=== PATIENT | female | born 1970 | race Asian ===

== ENCOUNTER 2019-12-15 15:14 | Inpatient (IN) | payer MEDICAID, SELFPAY ==
[~2019-12-15] VITALS: Ht 157.5 cm; Wt 68.0 kg
[2019-12-15 15:22] VITALS: BP 130/79
--- NOTE | 2019-12-15 16:02 | NUR ---
C/O WEAKNESS, N/V, AND ELEVATED BLOOD GLUCOSE X2 DAYS. PT STATES SHE HAS A HX OF DM BUT SHE DOES NOT TAKE ANY MEDICATION. PT STATES SHE USED AN UNK AMOUNT OF AN UNK TYPE OF INSULIN GIVEN TO HER BY HER MOM LAST NIGHT BECAUSE HER BS WAS "OVER 400". PT FSBS AT THIS TIME IS 295. PT IS TACHYCARDIC AT 112 BPM AT THIS TIME. PT STATES SHE HAS ALSO HAD NAUSEA/VOMITING FOR THE LAST TWO DAYS. ABDOMEN SOFT/FLAT/NON TENDER. LBM 12/13/20. BOWEL SOUNDS PRESENT X4. PT PLACED ON BEDSIDE LATEX FOAM WORKER & IN GOWN.
[2019-12-15] MEDS ORDERED: NACL 0.9% 1,000 ML IV SCH (16:04)
--- NOTE | 2019-12-15 16:31 | NUR ---
PT UNABLE TO PROVIDE URINE SAMPLE AT THIS TIME.
[2019-12-15 16:43] LABS: BASOPHILS % (AUTO) 0.8 % (0.0-2.0); EOSINOPHILS % (AUTO) 0.1 % (0.0-4.0); HEMATOCRIT 41.6 % (36-48); HEMOGLOBIN 13.9 g/dL (12.0-16.0); LYMPHOCYTES % (AUTO) 31.7 % (20.5-51.1); MEAN CORPUSCULAR HEMOGLOBIN 29 pg (27-31); MEAN CORPUSCULAR HGB CONC 33 g/dL (33-37); MEAN CORPUSCULAR VOLUME 87.1 fL (80-94); MONOCYTES # (AUTO) 0.5 K/uL (0.8-1.0); MONOCYTES % (AUTO) 7.3 % (1.7-9.3); NEUTROPHILS # (AUTO) 3.8 K/uL (1.8-7.7); NEUTROPHILS % (AUTO) 60.1 % (42.2-75.2); PLATELET COUNT (AUTO) 322 K/uL (140-450); RED BLOOD CELL COUNT(AUTO) 4.78 MIL/uL (4.20-5.40); RED CELL DISTRIBUTION WIDTH 13.8 % (11.6-13.7); WHITE BLOOD COUNT (AUTO) 6.3 K/uL (4.8-10.8)
[2019-12-15] MEDS ORDERED: AZITHROMYCIN 500 MG in DEXTROSE 5% 250 ML IV ONE (16:45)
[2019-12-15 16:53] LABS: ANION GAP 15.1 (8-16); CARBON DIOXIDE 26.8 mmol/L (21-32); CHLORIDE 96 mmol/L (98-107); CREATININE 0.9 mg/dL (0.6-1.3); GFR ARICAN-AMERICAN 85 mL/min (>90); GLUCOSE 284 mg/dL (74-106); POTASSIUM 3.9 mmol/L (3.5-5.1); SODIUM SERUM 134 mmol/L (136-145); UREA NITROGEN, BLOOD 14 mg/dL (7-18)
[2019-12-15 16:55] LABS: PROTHROMBIN TIME 9.5 secs (10.8-13.4)
[2019-12-15 16:59] LABS: ACETONE, SERUM NEGATIVE (NEGATIVE); ALBUMIN 2.8 g/dL (3.4-5.0); ASPARTATE AMINOTRANSFERASE 30 U/L (15-37); TOTAL BILIRUBIN 0.4 mg/dL (0.0-1.0)
--- NOTE | 2019-12-15 17:00 | NUR ---
PT RESTING IN BED AT LOWEST POSITION, HOB ELEVATED, SIDE RAIL X 1
[2019-12-15] MEDS ORDERED: AZITHROMYCIN 500 MG INJ VIAL IV ONE (17:02)
[2019-12-15 17:04] LABS: FIBRINOGEN 475 mg/dL (200-400)
--- NOTE | 2019-12-15 17:25 | NUR ---
PT STATED SHE IS UNABLE TO PROVIDE URINE AT THIS TIME.
[2019-12-15 17:48] LABS: D-DIMER 388 ng/ml (0-400)
[2019-12-15] MEDS ORDERED: DEXTROSE 50% 50 ML SYR IVP PRN (18:15)
[2019-12-15] MEDS ORDERED: HYDROcodone/APAP 7.5/325 MG 1 TAB PO PRN (18:15)
[2019-12-15] MEDS ORDERED: ACETAMINOPHEN 325 MG TAB PO PRN (18:15)
[2019-12-15 18:16] LABS: C-REACTIVE PROTEIN QUANT 2.5 mg/dL (0.0-0.9)
[2019-12-15 18:35] LABS: MAGNESIUM 1.5 mg/dL (1.8-2.4)
--- NOTE | 2019-12-15 18:35 | NUR ---
PT STATES SHE IS STILL UNABLE TO URINATE
[2019-12-15 18:36] LABS: PHOSPHORUS 3.9 mg/dL (2.5-4.9)
[2019-12-15 18:40] LABS: THYROID STIMULATING HORMONE 5.1 uIU/mL (0.34-3.74)
[2019-12-15 18:41] LABS: RSV NEGATIVE (NEGATIVE)
--- NOTE | 2019-12-15 19:10 | NUR ---
REPORT GIVEN TO BERNY FROST FOR TRANSFER OF CARE.
--- NOTE | 2019-12-15 19:14 | NUR ---
RECIEVED REPORT FROM BERNY CORRIGAN. TRANSFER OF CARE AT THIS TIME.
[2019-12-15] MEDS ORDERED: MAG SULF 2000 MG/WATER PREMIX 50 ML IV ONE (19:15)
--- NOTE | 2019-12-15 19:36 | NUR ---
Patient will be admitted to care of [facility]. Admited to TELE. Will go to room 116. Belongings list completed. Report to BERNY FLOR.
--- NOTE | 2019-12-15 19:37 | NUR ---
RECEIVED PT FROM ER VIA INES PT FAROESE SPEAKER AAOX4 AMBULATORY, NOT SOB NOTED ON TELEMETRY ST, HL ON LEFT AC GAUGE 20, PT IS ORIENTED TO THE FLOOR CALL LIGHT WITHIN REACH , MRSA NARES PROTOCOL SWAB TAKEN AND SENT TO LAB, PT IS R/O COVID AND PROTOCOL FOR ISOLATION AND TAKE CARE PT INITIAL ASSESSMENT DONE
[2019-12-15 20:00] VITALS: BP 117/75
[2019-12-15] MEDS: NACL 0.9% 1,000 ML IV SCH (20:00)
[2019-12-15] MEDS: DOCUSATE SODIUM 100 MG GELCAP PO SCH (20:38)
[2019-12-15] MEDS: INSULIN LISPRO SLIDING SCALE 100 UNITS/ML VIAL SUBQ PRN (20:53)
[2019-12-15] MEDS: BLOOD GLUCOSE MONITORING 1 DEV DEV FS SCH (21:07)
[2019-12-15 21:55] LABS: BILIRUBIN,URINE NEGATIVE (NEGATIVE); BLOOD, URINE 2+ (NEGATIVE); LEUKOCYTE ESTERASE ,URINE NEGATIVE (NEGATIVE); NITRITE, URINE NEGATIVE (NEGATIVE); UGLUCOSE 3+ (NEGATIVE)
[2019-12-15 21:57] LABS: APPEARANCE,URINE CLEAR (CLEAR); COLOR,URINE YELLOW (YELLOW)
--- NOTE | 2019-12-15 22:00 | NUR ---
PT REMAIN STBLE NOT SOB NOTED ON TELE SR NOT N/V ON CONTINUE MONITORING
[2019-12-15 22:15] LABS: RBC,URINE 0-5 /HPF (0-5); WBC,URINE 0-5 /HPF (0-5)
[2019-12-15 22:22] LABS: BARBITURATE, URINE NEGATIVE ng/ml (NEG <=200); BENZODIAZEPINE, URINE NEGATIVE ng/mL (NEG <=200); CANNABINOID, URINE NEGATIVE ng/mL (NEG <=50); COCAINE, URINE NEGATIVE ng/mL (NEG <=300); OPIATE, URINE NEGATIVE ng/mL (NEG <=2000); PHENCYCLIDINE SCREEN,URINE NEGATIVE ng/mL (NEG <=25)
[2019-12-16] VITALS: BP 117/72
--- NOTE | 2019-12-16 02:00 | NUR ---
PT AMBULATES STO THE RESTROOM NOT SOB NOTED ON TELE SR IV ON LEFT AC INFUSING WELL
[2019-12-16 04:00] VITALS: BP 120/70
--- NOTE | 2019-12-16 05:00 | NUR ---
SPONGE BATHGIVEN LINEN CHANGED ON TELE SR NOT SOB NOTED REMAIN STABLE PT HAS BEEN SLEEPING WELL
[2019-12-16] MEDS: BLOOD GLUCOSE MONITORING 1 DEV DEV FS SCH ×4 (06:56→20:19)
--- NOTE | 2019-12-16 06:59 | NUR ---
BLOOD SUGAR TEST 135 NOT CVOVERAGE PT WILL BE ENDORSED TO DAY SHIFT NURSE FOR CONTINUE OF CARE
--- NOTE | 2019-12-16 07:05 | NUR ---
RECEIVED REPORT FROM NIGHT NURSE, PT IS STABLE, NEPALESE SPEAKING, AMBULATORY, NO DISTRESS NOTED. SAFETY MEASURES IN PLACE AND CALL LIGHT WITHIN REACH. WILL CONTINUE TO MONITOR.
[2019-12-16 07:15] LABS: BASOPHILS % (AUTO) 0.2 % (0.0-2.0); EOSINOPHILS % (AUTO) 0.3 % (0.0-4.0); HEMATOCRIT 38.6 % (36-48); HEMOGLOBIN 12.9 g/dL (12.0-16.0); LYMPHOCYTES # (AUTO) 2.6 K/uL (2.5-16.5); LYMPHOCYTES % (AUTO) 42.9 % (20.5-51.1); MEAN CORPUSCULAR HEMOGLOBIN 29 pg (27-31); MEAN CORPUSCULAR HGB CONC 33 g/dL (33-37); MEAN CORPUSCULAR VOLUME 86.5 fL (80-94); MONOCYTES # (AUTO) 0.6 K/uL (0.8-1.0); MONOCYTES % (AUTO) 10.5 % (1.7-9.3); NEUTROPHILS # (AUTO) 2.8 K/uL (1.8-7.7); NEUTROPHILS % (AUTO) 46.1 % (42.2-75.2); PLATELET COUNT (AUTO) 257 K/uL (140-450); RED BLOOD CELL COUNT(AUTO) 4.46 MIL/uL (4.20-5.40); RED CELL DISTRIBUTION WIDTH 13.9 % (11.6-13.7)
[2019-12-16] MEDS: NACL 0.9% 1,000 ML IV SCH ×2 (07:32→20:19)
[2019-12-16 07:37] LABS: ANION GAP 10.3 (8-16); CARBON DIOXIDE 27.2 mmol/L (21-32); CREATININE 0.7 mg/dL (0.6-1.3); POTASSIUM 3.5 mmol/L (3.5-5.1)
[2019-12-16 07:46] LABS: CHOL/HDL RATIO 3.5 (1-4.5); MAGNESIUM 1.8 mg/dL (1.8-2.4); PHOSPHORUS 3.1 mg/dL (2.5-4.9)
[2019-12-16 08:00] VITALS: BP 119/67
[2019-12-16] MEDS: VITAMIN D 400 IU TAB PO SCH (08:15)
[2019-12-16] MEDS: DOCUSATE SODIUM 100 MG GELCAP PO SCH ×2 (08:15→20:20)
[2019-12-16] MEDS: FAMOTIDINE 20 MG TAB PO SCH (08:16)
[2019-12-16] MEDS: ZINC SULF 220 MG CAP PO SCH (08:16)
[2019-12-16] MEDS: ASCORBIC ACID 500 MG TAB PO SCH (08:16)
[2019-12-16] MEDS: AZITHROMYCIN 250 MG TAB PO SCH (08:17)
[2019-12-16] MEDS: ENOXAPARIN 40 MG/0.4 ML SYR SUBQ SCH (08:20)
--- NOTE | 2019-12-16 09:18 | NUR ---
PATIENT HAS BEEN SCREENED AND CATEGORIZED HIGH NUTRITION RISK. PATIENT WILL BE SEEN WITHIN 1-2 DAYS OF ADMISSION. 12/16/19-12/17/[address]
--- NOTE | 2019-12-16 09:20 | NUR ---
MEDICATIONS DUE GIVEN PT IS SLEEPING, SKIN IS INTACT, IV SITES INTACT AND PATENT, PT DENIES PAIN AND NO DISTRESS NOTED,SAFETY MEASURES IN PLACE, CALL LIGHT WITHIN REACH. WILL CONTINUE TO MONITOR.
[2019-12-16] MEDS: INSULIN LISPRO SLIDING SCALE 100 UNITS/ML VIAL SUBQ PRN ×2 (11:39→20:24)
[2019-12-16 12:00] VITALS: BP 116/70
--- NOTE | 2019-12-16 12:00 | NUR ---
MADE ROUNDS PT IS STABLE AND VERBALIZES DECREASE PAIN ON THE ABDOMEN FROM 6/10 TO 1/10. NO DISTRESS NOTED, VITAL SIGNS STABLE. SAFETY MEASURES IN PLACE, CALL LIGHT WITHIN REACH. WILL CONTINUE TO MONITOR.
--- NOTE | 2019-12-16 12:16 | NUR ---
DC PLANNIN YRS OLD FEMALE PATIENT WAS ADMITTED FROM HOME WITH A DX OF PNA, DM AND R/O COVID. PATIENT HAS A HX OF DM, NON-COMPLIANCE WITH MEDS BS ON ADMISSION 400 . CXR SHOWED RIGHT BASILAR OPACITY SUSPICIOUS FOR FOCUS OF PNEUMONIA. INFLUENZA A&B NEGATIVE. COVID TEST, BLOOD AND URINE CULTURE PENDING. STARTED ON IVF, IV ABX ROCEPHIN AND AZITHROMYCIN AND LOVENOX SUBQ . CONSULTED WITH PULMO DR VO. DC PLAN AWAITING FOR THE COVID TEST RESULT. CM TO FOLLOW
--- NOTE | 2019-12-16 14:00 | NUR ---
MADE ROUND PT IS SLEEPING AND STABLE, NO DISTRESS NOTED,DENIES PAIN. SAFETY MEASURES IN PLACE AND CALL LIGHT WITHIN REACH.
--- NOTE | 2019-12-16 14:57 | NUR ---
SENIOR QUALITY ASSURANCE ANALYST NOTE: SW ATTEMPTED TO CONTACT PATIENT'S EMERGENCY CONTACT - ANA TORRES [phone]. SW LEFT VM. SW WILL FOLLOW UP NEEDED. Addendum: 12/17/19 at 0955 by Javy Strong [facility] Patient: RanjanaEcho : 1970 Age/Sex: 49/F Unit#: [id number] Room/Bed: 116/A User: Javy RAMOS Date: 12/17/19 09:53 Type: CM: Discharge Planning Basic Screen: Yes High Risk DC Screen Mears: ANA Ness Relationship: FRIEND Pre-Admission Living Arrangements: Lives with Other Prior ADL Independent Current Home Health Name/Tel: N/A Current DME/02 Name/Tel: N/A Current Hospice Name/Tel: N/A Current Dialysis Name/Tel: N/A Healthcare Decision Maker: Patient Advance Directive No Physician Orders for Life Sustaining Treatment Form No Patient/Family Have Educational Needs No Discipline: Case Mgt/Social Svcs Tentative Discharge Plan/Destination: No Needs Identified Will require assistance post discharge: No Referred to [facility] Vent[facility]ator: No Tentative Discharge Plan Summary: PATIENT IS A 49-YEAR-OLD FEMALE ADMITTED FOR PNEUMONIA, DIABETES, AND R/O COVID. PATIENT HAS PMJHX OF DIABETES AND MEDICAL NONCOMPLIANCE. PATIENT WAS ADMITTED FROM HOME. DUE TO MEDICAL CONDITION, SW WAS UNABLE TO MEET PATIENT. SW CONSULTED WITH PATIENT'S PHYSICIAN AND NO SOCIAL NEEDS ARE APPARENT. SW WILL REMAIN AVAILABLE IF SOCIAL NEEDS ARISE. TENTATIVE DISCHARGE PLAN IS FOR PATIENT TO RETURN HOME. Signature: CK LONDONO Date: December 17, 2019 Time: 09:54
[2019-12-16 16:00] VITALS: BP 121/71
[2019-12-16] MEDS: metFORMIN 500 MG TAB PO SCH (16:22)
--- NOTE | 2019-12-16 16:30 | NUR ---
BLOOD SUGAR MONITORING DONE 121MG/DL, AND NO INSULIN COVERAGE GIVEN.PT IS SLEEPING NO DISTRESS NOTED DENIES PAIN, SAFETY MEASURES IN PLACE, CALL LIGHT WITHIN REACH. WILL CONTINUE TO MONITOR.
--- NOTE | 2019-12-16 17:30 | NUR ---
MADE ROUNDS AND CHECK PT IV, INTACT AND PATENT, PATIENT IS STILL SLEEPING COMFORTABLY AND DENIES PAIN. WILL CONTINUE TO MONITOR.
--- NOTE | 2019-12-16 19:05 | NUR ---
ENDORSED PT TO NIGHT NURSE FOR CONTINUITY OF CARE, PT IS STABLE.
--- NOTE | 2019-12-16 19:06 | NUR ---
RECEIVED REPORT FROM DAY SHIFT NURSE. PT IN BED RESTING. AWAKE, ALERT, ORIENTED. ABLE TO MAKE NEEDS KNOWN. RESPIRATIONS EVEN AND UNLABORED TO ROOM AIR. SKIN IS WARM, DRY, AND INTACT. ABDOMEN IS SOFT AND NON-TENDER. PT DENIES ANY PAIN OR DISCOMFORT AT THIS TIME. IV ACCESS ON L FA G20 CLEAN AND INTACT. PLAN OF CARE DISCUSSED. PT VERBALIZED UNDERSTANDING. NO REQUESTS MADE AT THIS TIME. CALL LIGHT WITHIN REACH. WILL CONTINUE TO MONITOR.
[2019-12-16 20:00] VITALS: BP 124/79
--- NOTE | 2019-12-16 20:30 | NUR ---
VS STABLE. SCHEDULED MEDS GIVEN. PT NOT IN DISTRESS. NO REQUESTS MADE AT THIS TIME. CALL LIGHT WITHIN REACH. WILL CONTINUE TO MONITOR.
--- NOTE | 2019-12-16 22:49 | NUR ---
IVF LEAKING. NEW IV ACCESS INSERTED ON LEFT FOREARM G20. IVF INFUSING WELL. WILL CONTINUE TO MONITOR.
[2019-12-17] VITALS: BP 133/78
--- NOTE | 2019-12-17 00:15 | NUR ---
VS STABLE. PT DENIES ANY PAIN OR DISCOMFORT. KEPT COMFORTABLE. CALL LIGHT WITHIN REACH. WILL CONTINUE TO MONITOR.
--- NOTE | 2019-12-17 01:44 | NUR ---
PT ASLEEP. RESPIRATIONS EVEN AND UNLABORED. SAFETY MEASURES IN PLACE. WILL CONTINUE TO MONITOR.
[2019-12-17 04:00] VITALS: BP 123/65
--- NOTE | 2019-12-17 04:11 | NUR ---
VITAL SIGNS WITHIN NORMAL LIMITS. PT DENIES ANY PAIN OR DISTRESS. RESPIRATIONS EVEN AND UNLABORED. CALL LIGHT WITHIN REACH. WILL CONTINUE TO MONITOR.
[2019-12-17] MEDS: BLOOD GLUCOSE MONITORING 1 DEV DEV FS SCH ×4 (06:16→20:33)
--- NOTE | 2019-12-17 06:17 | NUR ---
BLOOD SUGAR 175. INSULIN COVERAGE GIVEN ORDERED. WILL CONTINUE TO MONITOR.
[2019-12-17] MEDS: INSULIN LISPRO SLIDING SCALE 100 UNITS/ML VIAL SUBQ PRN ×3 (06:18→21:07)
--- NOTE | 2019-12-17 07:05 | NUR ---
RECEIVED REPORT FROM NIGHT NURSE FOR CONTINUITY OF CARE, PT IS STABLE, PT IS AAOX4, NO SIGNS OF DISTRESS NOTED, RESPIRATIONS ARE EVEN AND UNLABORED ON ROOM AIR, PT HAS LEFT FA 20G INFUSING NORMAL SALINE AT 75ML/H, SKIN INTACT, WILL UPDATE WHITEBOARD, INTRODUCE SELF, ALL NEEDS MET AT THIS TIME, CALL LIGHT WITHIN REACH, WILL CONTINUE TO MONITOR
--- NOTE | 2019-12-17 07:15 | NUR ---
ENDORSED PATIENT TO DAY SHIFT NURSE. PT IN STABLE CONDITION.
[2019-12-17 07:22] LABS: BASOPHILS % (AUTO) 0.4 % (0.0-2.0); EOSINOPHILS % (AUTO) 0.4 % (0.0-4.0); HEMATOCRIT 38.5 % (36-48); LYMPHOCYTES # (AUTO) 1.8 K/uL (2.5-16.5); LYMPHOCYTES % (AUTO) 25.4 % (20.5-51.1); MEAN CORPUSCULAR HEMOGLOBIN 29 pg (27-31); MEAN CORPUSCULAR HGB CONC 34 g/dL (33-37); MEAN CORPUSCULAR VOLUME 86.1 fL (80-94); MONOCYTES # (AUTO) 0.5 K/uL (0.8-1.0); NEUTROPHILS # (AUTO) 4.8 K/uL (1.8-7.7); NEUTROPHILS % (AUTO) 66.8 % (42.2-75.2); PLATELET COUNT (AUTO) 266 K/uL (140-450); RED BLOOD CELL COUNT(AUTO) 4.47 MIL/uL (4.20-5.40); RED CELL DISTRIBUTION WIDTH 13.4 % (11.6-13.7); WHITE BLOOD COUNT (AUTO) 7.1 K/uL (4.8-10.8)
[2019-12-17 07:38] LABS: ANION GAP 12.4 (8-16); CARBON DIOXIDE 26.2 mmol/L (21-32); CREATININE 0.7 mg/dL (0.6-1.3); POTASSIUM 3.6 mmol/L (3.5-5.1); TOTAL BILIRUBIN 0.2 mg/dL (0.0-1.0)
[2019-12-17 07:39] LABS: ALBUMIN 2.5 g/dL (3.4-5.0)
[2019-12-17 08:00] VITALS: BP 116/69
[2019-12-17] MEDS: metFORMIN 500 MG TAB PO SCH ×2 (08:00→17:55)
[2019-12-17] MEDS: NACL 0.9% 1,000 ML IV SCH ×2 (09:23→22:22)
[2019-12-17] MEDS: ENOXAPARIN 40 MG/0.4 ML SYR SUBQ SCH (09:31)
[2019-12-17] MEDS: ASCORBIC ACID 500 MG TAB PO SCH (09:34)
[2019-12-17] MEDS: ZINC SULF 220 MG CAP PO SCH (09:34)
[2019-12-17] MEDS: FAMOTIDINE 20 MG TAB PO SCH (09:34)
[2019-12-17] MEDS: DOCUSATE SODIUM 100 MG GELCAP PO SCH ×2 (09:34→20:34)
--- NOTE | 2019-12-17 09:34 | NUR ---
ADMINISTERED SCHEDULED MEDICATION, MEDICATION EDUCATION GIVEN, PT VERBALIZED UNDERSTANDING, PT TOLERATED WELL, PT IS STABLE, CALL LIGHT WITHIN REACH.
[2019-12-17] MEDS: AZITHROMYCIN 250 MG TAB PO SCH (09:35)
[2019-12-17 12:00] VITALS: BP 112/72
[2019-12-17] MEDS: VITAMIN D 400 IU TAB PO SCH (12:57)
--- NOTE | 2019-12-17 12:57 | NUR ---
ADMINISTERED 4 UNITS OF HUMALOG FOR BLOOD SUGAR OF 214, MEDIATION EDUCATION GIVEN, PT VERBALIZED UNDERSTANDING, PT TOLERATED WELL, PT STABLE, CALL LIGHT WITHIN REACH.
--- NOTE | 2019-12-17 13:24 | NUR ---
12/17/19 RD INITIAL ASSESSMENT COMPLETED PLEASE REFER TO NUTRITION ASSESSMENT UNDER CARE ACTIVITY FOR ESTIMATED NUTRITIONAL NEEDS. [facility]. [facility] TOLERATED 2. RD PROVIDED NUTRITION EDUCATION HANDOUTS ON DIABETES. 3. RD TO FOLLOW-UP 3-5 DAYS, MODERATE RISK NORBERTO LUNSFORD RD
[2019-12-17] MEDS ORDERED: LOVENOX 1MG/KG Q12H SUBQ SCH (13:45)
[2019-12-17] MEDS: CHLORHEXADINE GLUC 2% CLOTH TP SCH (13:56)
[2019-12-17] MEDS: MUPIROCIN CA NASAL 2% 1GM TUBE NS SCH (13:56)
--- NOTE | 2019-12-17 13:56 | NUR ---
ADMINISTERED SCHEDULED MEDICATION, MEDICATION EDUCATION GIVEN, PT VERBALIZED UNDERSTANDING, PT TOLERATED WELL, PT STABLE, CALL LIGHT WITHIN REACH.
[2019-12-17] MEDS: INSULIN LANTUS 100 UNITS/ML 10 ML VIAL SUBQ SCH (14:28)
--- NOTE | 2019-12-17 14:28 | NUR ---
ADMINISTERED SCHEDULED MEDICATION, MEDICATION EDUCATION GIVEN, PT VERBALIZED UNDERSTANDING, PT STABLE, CALL LIGHT WITHIN REACH.
--- NOTE | 2019-12-17 14:33 | NUR ---
POST ABG PUNCTURE PLACED ON SUPPLEMENTAL OXTGEN AT 2 LPM VIA NC ORDERED
[2019-12-17] MEDS ORDERED: ENOXAPARIN 80 MG/0.8 ML SYR SUBQ SCH (15:00)
[2019-12-17 16:00] VITALS: BP 117/68
--- NOTE | 2019-12-17 17:57 | NUR ---
ADMINISTERED SCHEDULED MEDICATION, MEDICATION EDUCATION GIVEN, PT VERBALIZED UNDERSTANDING, PT IS STABLE, CALL LIGHT WITHIN REACH.
[2019-12-17] MEDS ORDERED: COMMUNICATION ORDER MC SCH (18:25)
--- NOTE | 2019-12-17 18:25 | NUR ---
RECEIVED TORB FOR REMDESIVIR 200MG IV ONCE 1ST DOSE, THEN 100 MG DAILY FOR 4 DAYS.
--- NOTE | 2019-12-17 19:20 | NUR ---
RECEIVED PT AAOX4 , NID - O2 SAT WNL . ON O2 AT 2LPM / NC , ON TELE MONITOR , IV SITE INTACT AND PATENT , ENCOURAGE DEEP BREATHING . SAFETY MEASURES IN PLACE - CALL LIGHT WITHIN REACH . PLAN OF CARE DISCUSSED AND VERBALIZE UNDERSTANDING . REMINDS HER THE USE OF CALL LIGHT IF SHE NEEDED HELP / ASSISTANCE . WILL CONT. TO MONITOR.
--- NOTE | 2019-12-17 19:20 | NUR ---
GAVE REPORT TO NIGHT NURSE FOR CONTINUITY OF CARE, PT IS STABLE.
[2019-12-17 20:00] VITALS: BP 121/67
[2019-12-17] MEDS ORDERED: REMDESIVIR 200 MG SCH ×2 (20:00)
[2019-12-17] MEDS: ENOXAPARIN 80 MG/0.8 ML SYR SUBQ SCH (20:34)
--- NOTE | 2019-12-17 22:00 | NUR ---
MADE ROUNDS , NO S/ S OF ACUTE DISTRESS NOTED AT THIS TIME . VOMITED ONCE - WILL CONT.TO MONITOR THE PERSISTENT OF VOMITING . CALL LIGHT WITHIN REACH.
[2019-12-18] VITALS: BP 120/60
--- NOTE | 2019-12-18 | NUR ---
MADE ROUNDS , NO FURTHER VOMITING NOTED AT THIS TIME , ATE JELLO - TOLERATED . WILL CONT. TO MONITOR. O2 SAT WNL.
--- NOTE | 2019-12-18 02:00 | NUR ---
MADE ROUNDS , SLEEPING CHEST RISE AND FALL EQUALLY - - WILL CONT. TO MONITOR . ON TELE MONITOR.
[2019-12-18 04:00] VITALS: BP 112/60
[2019-12-18] MEDS: BLOOD GLUCOSE MONITORING 1 DEV DEV FS SCH ×4 (06:04→21:38)
[2019-12-18] MEDS: INSULIN LISPRO SLIDING SCALE 100 UNITS/ML VIAL SUBQ PRN ×3 (06:05→21:41)
--- NOTE | 2019-12-18 07:20 | NUR ---
RECEIVED BEDSIDE SHIFT REPORT FROM COLLECTIONS TECHNICIAN NURSE FOR CONTINUATION OF CARE.
[2019-12-18 07:34] LABS: BASOPHILS % (AUTO) 0.4 % (0.0-2.0); EOSINOPHILS % (AUTO) 0.2 % (0.0-4.0); HEMATOCRIT 37.2 % (36-48); HEMOGLOBIN 12.5 g/dL (12.0-16.0); LYMPHOCYTES # (AUTO) 2.1 K/uL (2.5-16.5); LYMPHOCYTES % (AUTO) 38.1 % (20.5-51.1); MEAN CORPUSCULAR HEMOGLOBIN 29 pg (27-31); MEAN CORPUSCULAR HGB CONC 34 g/dL (33-37); MEAN CORPUSCULAR VOLUME 86.3 fL (80-94); MONOCYTES # (AUTO) 0.5 K/uL (0.8-1.0); MONOCYTES % (AUTO) 9.7 % (1.7-9.3); NEUTROPHILS # (AUTO) 2.8 K/uL (1.8-7.7); NEUTROPHILS % (AUTO) 51.6 % (42.2-75.2); PLATELET COUNT (AUTO) 263 K/uL (140-450); RED CELL DISTRIBUTION WIDTH 13.7 % (11.6-13.7); WHITE BLOOD COUNT (AUTO) 5.4 K/uL (4.8-10.8)
[2019-12-18 08:00] VITALS: BP 123/71
[2019-12-18 08:06] LABS: ALBUMIN 2.4 g/dL (3.4-5.0); ANION GAP 11.5 (8-16); CARBON DIOXIDE 26.9 mmol/L (21-32); CREATININE 0.6 mg/dL (0.6-1.3); POTASSIUM 3.4 mmol/L (3.5-5.1); TOTAL BILIRUBIN 0.2 mg/dL (0.0-1.0)
[2019-12-18] MEDS: metFORMIN 500 MG TAB PO SCH ×2 (08:31→16:16)
[2019-12-18] MEDS: CLINICAL MONITORING MC SCH (08:32)
[2019-12-18] MEDS: DOCUSATE SODIUM 100 MG GELCAP PO SCH ×2 (08:32→21:39)
[2019-12-18] MEDS: VITAMIN D 400 IU TAB PO SCH (08:32)
[2019-12-18] MEDS: FAMOTIDINE 20 MG TAB PO SCH (08:33)
[2019-12-18] MEDS: ENOXAPARIN 80 MG/0.8 ML SYR SUBQ SCH ×2 (08:34→21:40)
[2019-12-18] MEDS: INSULIN LANTUS 100 UNITS/ML 10 ML VIAL SUBQ SCH (08:34)
[2019-12-18] MEDS: ASCORBIC ACID 500 MG TAB PO SCH (08:35)
[2019-12-18] MEDS: AZITHROMYCIN 250 MG TAB PO SCH (08:35)
[2019-12-18] MEDS: ZINC SULF 220 MG CAP PO SCH (08:35)
--- NOTE | 2019-12-18 10:00 | NUR ---
TOLERATED MED PASS. LOW ENERGY. CALL LIGHT ON AND WITHIN REACH, HAD 1 EPISODE OF VOMITTING, DENIES NAUSEA.
[2019-12-18 12:00] VITALS: BP 120/65
[2019-12-18] MEDS: CHLORHEXADINE GLUC 2% CLOTH TP SCH (13:04)
[2019-12-18] MEDS: MUPIROCIN CA NASAL 2% 1GM TUBE NS SCH (13:41)
--- NOTE | 2019-12-18 15:00 | NUR ---
REMDESIVIR ADMINISTERED, TOLERATED WELL.
[2019-12-18] MEDS: REMDESIVIR 100MG IV IV SCH (15:15)
[2019-12-18 16:00] VITALS: BP 116/62
[2019-12-18] MEDS ORDERED: POTASSIUM CHLORIDE 40 MEQ, LIDOCAINE MPF 1% 25 MG in NACL 0.9% 250 ML IV ONE (17:25)
[2019-12-18] MEDS ORDERED: KCL 20 MEQ/WATER INJ PREMIX 200 ML IV ONE (18:10)
[2019-12-18] MEDS ORDERED: POTASSIUM CHLORIDE 10 MEQ TABER PO SCH (18:35)
[2019-12-18] MEDS ORDERED: POTASSIUM CHLORIDE 10 MEQ TABER PO ONE (18:42)
--- NOTE | 2019-12-18 19:25 | NUR ---
BEDSIDE SHIFT REPORT GIVEN TO LABEL PASTER NURSE FOR CONTINUATION OF CARE.
--- NOTE | 2019-12-18 19:25 | NUR ---
RECEIVED BEDSIDE REPORT FROM AM SHIFT RN FOR PT'S CONTINUITY OF CARE. PT IS ON ISOLATION FOR R/O COVID, IS ON 2L O2 VIA NC, HAS A LEFT AC 20G WITH NS AT 40ML/HR. SAFETY MEASURES IN PLACE, AND CALL LIGHT IS WITHIN REACH. WILL MONITOR PT THROUGHOUT SHIFT.
--- NOTE | 2019-12-18 21:40 | NUR ---
BLOOD GLUCOSE CHECKED AND CHARTED. ADMINISTERED SCHEDULED MEDICATIONS ORDERED, ADMINISTERED INSULIN SUBQ PER SLIDING SCALE PROTOCOL ORDERED. PT TOLERATED IT WELL. PT EDUCATION GIVEN, PT VERBALIZED UNDERSTANDING. PT'S NEEDS MET AT THIS TIME. WILL CONTINUE TO MONITOR PT.
[2019-12-19] VITALS: BP 122/73
--- NOTE | 2019-12-19 | NUR ---
VS CHECKED AND CHARTED. PT DENIES ANY PAIN AT THIS TIME. WILL CONTINUE TO MONITOR PT.
--- NOTE | 2019-12-19 02:10 | NUR ---
MADE ROUNDS. PT ASLEEP WITH NO SIGNS OF DISTRESS. WILL CONTINUE TO MONITOR PT.
--- NOTE | 2019-12-19 04:00 | NUR ---
PT ASLEEP WITH NO SIGNS OF DISTRESS. WILL CONTINUE TO MONITOR PT.
[2019-12-19] MEDS: BLOOD GLUCOSE MONITORING 1 DEV DEV FS SCH ×4 (06:10→21:00)
--- NOTE | 2019-12-19 06:15 | NUR ---
BLOOD GLUCOSE CHECKED AND CHARTED, NO COVERAGE NEEDED. PT WAS ASLEEP, WOKE UP AND DENIES ANY PAIN OR RESPIRATORY DISTRESS AT THIS TIME. PT ON ROOM AIR SATURATING AT 95%.
--- NOTE | 2019-12-19 06:38 | NUR ---
PT ASLEEP WITH NO SIGNS OF DISTRESS. WILL ENDORSE TO AM SHIFT RN FOR PT'S CONTINUITY OF CARE.
--- NOTE | 2019-12-19 07:24 | NUR ---
RECEIVED REPORT FROM CFO CONTROLLER RN. AOX4, NO C/O PAIN, NO SOB, RESPIRATIONS ARE EVEN AND UNLABORED ON ISOLATION FOR COVID. ON ROOM AIR. IV SITE LEFT AC 20G WITH NS AT 40ML/HR. SAFETY PRECAUTIONS IN PLACE. CALL LIGHT WITHIN REACH. WILL TO MONITOR.
[2019-12-19 07:35] LABS: BASOPHILS % (AUTO) 0.7 % (0.0-2.0); EOSINOPHILS % (AUTO) 0.5 % (0.0-4.0); HEMATOCRIT 37.8 % (36-48); HEMOGLOBIN 12.5 g/dL (12.0-16.0); LYMPHOCYTES # (AUTO) 2.9 K/uL (2.5-16.5); LYMPHOCYTES % (AUTO) 49.2 % (20.5-51.1); MEAN CORPUSCULAR HEMOGLOBIN 29 pg (27-31); MEAN CORPUSCULAR HGB CONC 33 g/dL (33-37); MEAN CORPUSCULAR VOLUME 87.2 fL (80-94); MONOCYTES # (AUTO) 0.6 K/uL (0.8-1.0); MONOCYTES % (AUTO) 10.8 % (1.7-9.3); NEUTROPHILS # (AUTO) 2.3 K/uL (1.8-7.7); NEUTROPHILS % (AUTO) 38.8 % (42.2-75.2); PLATELET COUNT (AUTO) 307 K/uL (140-450); RED BLOOD CELL COUNT(AUTO) 4.34 MIL/uL (4.20-5.40); RED CELL DISTRIBUTION WIDTH 13.6 % (11.6-13.7); WHITE BLOOD COUNT (AUTO) 5.9 K/uL (4.8-10.8)
[2019-12-19 07:39] LABS: ANION GAP 13.5 (8-16); CARBON DIOXIDE 27.3 mmol/L (21-32); CREATININE 0.7 mg/dL (0.6-1.3); POTASSIUM 3.8 mmol/L (3.5-5.1)
[2019-12-19 07:53] LABS: MAGNESIUM 1.5 mg/dL (1.8-2.4); PHOSPHORUS 3.6 mg/dL (2.5-4.9)
[2019-12-19 08:00] VITALS: BP 105/68
--- NOTE | 2019-12-19 08:20 | NUR ---
DUE MORNING MEDS GIVEN. TOLERATED WELL. NO COMPLAINTS AT THIS TIME
[2019-12-19] MEDS: metFORMIN 500 MG TAB PO SCH ×2 (08:31→16:14)
[2019-12-19] MEDS: NACL 0.9% 1,000 ML IV SCH (08:31)
[2019-12-19] MEDS: CLINICAL MONITORING MC SCH (08:32)
[2019-12-19] MEDS: ASCORBIC ACID 500 MG TAB PO SCH (08:32)
[2019-12-19] MEDS: DOCUSATE SODIUM 100 MG GELCAP PO SCH ×2 (08:32→23:43)
[2019-12-19] MEDS: ZINC SULF 220 MG CAP PO SCH (08:32)
[2019-12-19] MEDS: AZITHROMYCIN 250 MG TAB PO SCH (08:32)
[2019-12-19] MEDS: VITAMIN D 400 IU TAB PO SCH (08:32)
[2019-12-19] MEDS: FAMOTIDINE 20 MG TAB PO SCH (08:32)
[2019-12-19] MEDS: INSULIN LANTUS 100 UNITS/ML 10 ML VIAL SUBQ SCH (08:33)
[2019-12-19] MEDS: ENOXAPARIN 80 MG/0.8 ML SYR SUBQ SCH ×2 (08:33→21:00)
--- NOTE | 2019-12-19 09:50 | NUR ---
WITH EPISODE OF VOMITING X1. ZOFRAN IVP GIVEN ORDERED
[2019-12-19] MEDS: ONDANSETRON 4 MG/2 ML VIAL IVP PRN (10:01)
[2019-12-19] MEDS ORDERED: CLINICAL MONITORING MC PRN (10:05)
--- NOTE | 2019-12-19 10:53 | NUR ---
PT ASLEEP IN BED. NO APPARENT DISTRESS
--- NOTE | 2019-12-19 12:18 | NUR ---
BLOOD SUGAR 144. NO COVERAGE NEEDED
[2019-12-19] MEDS: CHLORHEXADINE GLUC 2% CLOTH TP SCH (12:45)
[2019-12-19] MEDS: MUPIROCIN CA NASAL 2% 1GM TUBE NS SCH (12:45)
--- NOTE | 2019-12-19 14:05 | NUR ---
RESTING IN BED. NO C/O PAIN, NO SOB. IN STABLE CONDITION
[2019-12-19] MEDS: REMDESIVIR 100MG IV IV SCH (15:00)
[2019-12-19 16:00] VITALS: BP 117/68
--- NOTE | 2019-12-19 16:30 | NUR ---
BS 150. NO COVERAGE
--- NOTE | 2019-12-19 18:50 | NUR ---
IN STABLE CONDITION. WILL ENDORSE TO PERSONAL FINANCIAL REPRESENTATIVE FOR CONTINUITY OF CARE
--- NOTE | 2019-12-19 19:25 | NUR ---
REPORT GIVEN BY JOSE AT BEDSIDE FOR CONTINUITY OF CARE, PT IN STABLE CONDITION.
--- NOTE | 2019-12-19 20:00 | NUR ---
PT IN BED AOX1 RESTING WITH EYES CLOSED, BUT AROUSABLE TO NAME AND LIGHT TOUCH. V/S FOLLOWS: T 98.3 P 84 R 18 B/P 116/63 02 96% PT RESPIRATIONS ARE EVEN AND UNLABORED ON ROOM AIR. PT KAILEY ANY PAIN OR DISTRESS NOTED.
--- NOTE | 2019-12-19 21:15 | NUR ---
PT LYING IN BED NO C/O VOICED, PT ABLE TO AMBULATE INDEPENDENTLY TO THE TOILET AND BACK. PT GIVEN ORDERED COLACE AND LOVENOX, PT EDUCATION PROVIDED AT BEDSIDE INCLUDING MEDICATION AND SIDE EFFECTS. ALL REQUESTED NEEDS ATTENDED BY STAFF AND ALL DROPLET AND CONTACT PRECAUTIONS IN PLACE.
--- NOTE | 2019-12-19 22:15 | NUR ---
ROUNDS DONE, PT IN BED RESTING NO S/S OF PAIN OR DISTRESS NOTED, RESPIRATIONS EVEN AND UNLABORED ON ROOM AIR.
[2019-12-19] MEDS: INSULIN LISPRO SLIDING SCALE 100 UNITS/ML VIAL SUBQ PRN (22:40)
[2019-12-20] VITALS: BP 109/67
--- NOTE | 2019-12-20 | NUR ---
PT IN BED RESTING WITH EYES CLOSED, BUT AROUSABLE TO NAME AND LIGHT TOUCH, RESPIRATIONS EVEN AND UNLABORED V/S FOLLOWS: T 98.4 P 87 R 20 B/P 109/67 02 97% ON ROOM AIR.
[2019-12-20 07:04] LABS: BASOPHILS % (AUTO) 0.4 % (0.0-2.0); EOSINOPHILS % (AUTO) 0.7 % (0.0-4.0); HEMOGLOBIN 12.4 g/dL (12.0-16.0); LYMPHOCYTES # (AUTO) 2.7 K/uL (2.5-16.5); LYMPHOCYTES % (AUTO) 44.9 % (20.5-51.1); MEAN CORPUSCULAR HEMOGLOBIN 29 pg (27-31); MEAN CORPUSCULAR HGB CONC 34 g/dL (33-37); MEAN CORPUSCULAR VOLUME 86.6 fL (80-94); MONOCYTES # (AUTO) 0.7 K/uL (0.8-1.0); MONOCYTES % (AUTO) 11.2 % (1.7-9.3); NEUTROPHILS # (AUTO) 2.6 K/uL (1.8-7.7); NEUTROPHILS % (AUTO) 42.8 % (42.2-75.2); PLATELET COUNT (AUTO) 333 K/uL (140-450); RED BLOOD CELL COUNT(AUTO) 4.27 MIL/uL (4.20-5.40); RED CELL DISTRIBUTION WIDTH 13.6 % (11.6-13.7)
--- NOTE | 2019-12-20 07:10 | NUR ---
RECEIVED REPORT FROM BID WRITER RN, ANDREW, FOR CONTINUITY OF CARE. AOX4, NO C/O PAIN, NO SOB, RESPIRATIONS ARE EVEN AND UNLABORED ON ISOLATION FOR COVID. ON ROOM AIR WITH O2 STAT AT 97%. IV SITE LEFT AC 20G WITH NS AT 40ML/HR. SAFETY PRECAUTIONS IN PLACE. CALL LIGHT WITHIN REACH. WILL TO MONITOR.
[2019-12-20 07:23] LABS: ANION GAP 13.6 (8-16); CREATININE 0.6 mg/dL (0.6-1.3); POTASSIUM 3.6 mmol/L (3.5-5.1)
[2019-12-20 07:42] LABS: MAGNESIUM 1.5 mg/dL (1.8-2.4); PHOSPHORUS 4.1 mg/dL (2.5-4.9)
[2019-12-20] MEDS: BLOOD GLUCOSE MONITORING 1 DEV DEV FS SCH ×2 (07:45→11:22)
[2019-12-20 08:00] VITALS: BP 110/65
--- NOTE | 2019-12-20 08:20 | NUR ---
MORNING MEDICATIONS GIVEN. V/S TAKEN WITHIN NORMAL LIMITS. PT. VERBALIZES NO PAIN AND NO SIGNS OF DISTRESS NOTED. WILL CONTINUE TO MONITOR.
[2019-12-20] MEDS: ZINC SULF 220 MG CAP PO SCH (08:21)
[2019-12-20] MEDS: ASCORBIC ACID 500 MG TAB PO SCH (08:23)
[2019-12-20] MEDS: DOCUSATE SODIUM 100 MG GELCAP PO SCH (08:24)
[2019-12-20] MEDS: metFORMIN 500 MG TAB PO SCH (08:24)
[2019-12-20] MEDS: VITAMIN D 400 IU TAB PO SCH (08:24)
[2019-12-20] MEDS: FAMOTIDINE 20 MG TAB PO SCH (08:24)
[2019-12-20] MEDS: NACL 0.9% 1,000 ML IV SCH (08:25)
[2019-12-20] MEDS: ONDANSETRON 4 MG/2 ML VIAL IVP PRN (09:27)
--- NOTE | 2019-12-20 09:30 | NUR ---
PT. VERBALIZES NAUSEA. WILL MEDICATE PER ORDERS.
--- NOTE | 2019-12-20 09:40 | NUR ---
ZOFRAN IVP GIVEN FOR VOMITING AND NAUSEA. NO SIGNS OF DISTRESS NOTED. WILL CONTINUE TO MONITOR.
[2019-12-20] MEDS: INSULIN LANTUS 100 UNITS/ML 10 ML VIAL SUBQ SCH (09:47)
[2019-12-20] MEDS: ENOXAPARIN 80 MG/0.8 ML SYR SUBQ SCH (09:48)
--- NOTE | 2019-12-20 11:00 | NUR ---
DR. RYAN AWARE OF PT'S NAUSEA. NO NEW ORDERS AND WILL PROCEED WITH AFTERNOON DISCHARGE.
[2019-12-20] MEDS: INSULIN LISPRO SLIDING SCALE 100 UNITS/ML VIAL SUBQ PRN (11:42)
[2019-12-20] MEDS ORDERED: MAG SULF 2000 MG/WATER PREMIX 50 ML IV SCH (12:00)
[2019-12-20] MEDS ORDERED: ATOR40TA PO (12:17)
[2019-12-20] MEDS ORDERED: ASPI-1822 PO (12:17)
[2019-12-20] MEDS ORDERED: GLIP10TA3 PO (12:17)
[2019-12-20] MEDS ORDERED: METF1000 PO (12:17)
[2019-12-20] MEDS ORDERED: AZIT250T11 PO (12:17)
--- NOTE | 2019-12-20 12:30 | NUR ---
MAGNESIUM GIVEN FOR VALUE OF 1.5. NO SIGNS OF DISTRESS NOTED. WILL CONTINUE TO MONITOR.
[2019-12-20] MEDS ORDERED: BLOO1STR56 MC (12:43)
[2019-12-20] MEDS: MUPIROCIN CA NASAL 2% 1GM TUBE NS SCH (12:47)
[2019-12-20] MEDS: CHLORHEXADINE GLUC 2% CLOTH TP SCH (12:48)
[2019-12-20 13:25] VITALS: BP 110/65
--- NOTE | 2019-12-20 14:45 | NUR ---
DISCHARGE PAPERWORKS SIGNED. COVID-19 INFORMATIONAL PACKET GIVEN AND DISCUSSED, PT. VERBALIZES UNDERSTANDING. WILL CONTINUE TO MONITOR.
--- NOTE | 2019-12-20 15:00 | NUR ---
PT. IS DISCHARGED TO HOME WITH SIGNIFICANT OTHER. DISCHARGE INSTRUCTIONS AND TEACHINGS GIVEN. PRESCRIPTIONS SENT TO PT'S PREFERRED PHARMACY. PT. VERBALIZES UNDERSTANDINGS. DISCHARGE PAPERWORKS SIGNED. IV SITE AND ARMBANDS REMOVED. PT. VERBALIZES NO PAIN AND NO SIGNS OF DISTRESS NOTED.
== END 2019-12-20 14:45 | disposition home or self-care (01) | DRG 137 ==
LOC: MED 15:14 → EEVIPCON 15:14 → MTU 18:12
PROVIDERS: ADMIT General Practice; ATTEND General Practice
DX: J15.212 Pneumonia due to Methicillin resistant Staphylococcus aureus (principal); U07.1 COVID-19; E43 Unspecified severe protein-calorie malnutrition; D68.69 Other thrombophilia; E11.69 Type 2 diabetes mellitus with other specified complication; E83.42 Hypomagnesemia; E87.1 Hypo-osmolality and hyponatremia; J12.89 Other viral pneumonia; J98.11 Atelectasis; Z68.27 Body mass index [BMI] 27.0-27.9, adult; E87.6 Hypokalemia; E02 Subclinical iodine-deficiency hypothyroidism; Z91.19 Patient's noncompliance with other medical treatment and regimen; F15.90 Other stimulant use, unspecified, uncomplicated; Z22.322 Carrier or suspected carrier of Methicillin resistant Staphylococcus aureus
CPT/HCPCS: 36415; 36600; 71045; 80048; 80053; 80305; 81001; 82009; 82140; 82550; 82553; 82728; 82803; 82948; 83036; 83605; 83615; 83690; 83735; 83880; 84100; 84439; 84443; 84484; 85025; 85379; 85384; 85610; 85651; 85730; 86140; 87040; 87081; 87086; 87420; 87804; 93005; 96361; 96365; 99285; J0456; J0696; J1650; J1815; J2001; J2405; J3475; J3480; J7030; J7060; Q0092; U0003-CS